=== PATIENT | female | born 1935 | race Caucasian/White ===

== ENCOUNTER 2023-04-02 21:02 | Inpatient (IN) | payer MEDICARE ==
[2023-04-02] MEDS ORDERED: Pantoprazole 80 MG, Admixture Fee 1 EACH in Sodium Chloride 0.9% 100 ML IVPB SCH (22:00)
[2023-04-02 22:07] LABS: %Basophils 0.3 % (0.0-1.0); %Eosinophils 0.4 % (0.0-10.0); %Lymphocytes 8.9 % (21.0-51.0); %Monocytes 9.5 % (0.0-10.0); %Neutrophils 80.1 % (42.0-75.0); Hematocrit 41.8 % (36.0-47.0); Hemoglobin 13.5 g/dL (12.0-16.0); Mean Corpuscular HGB CONC 32.3 g/dL (32.0-36.0); Mean Corpuscular Hemoglobin 29.3 pg (27.0-31.0); Mean Corpuscular Volume 90.9 fl (78.0-98.0); Mean Platelet Volume 8.7 fL (7.4-10.4); Platelet Count 291 10x3/uL (130-400); RBC Distribution Width 14.6 % (11.5-14.5)
[2023-04-02 22:15] LABS: INR-International Normal Ratio 1.2; PTT 28.1 sec (22.9-36.1); Prothrombin Time 15.3 sec (12.0-14.7)
[2023-04-02 22:45] LABS: Albumin 3.7 g/dL (3.4-4.8)
[2023-04-02 22:46] LABS: Chloride 91 mmol/L (98-107)
[2023-04-02 22:47] LABS: Calcium 9.3 mg/dL (7.8-10.44); Potassium 3.1 mmol/L (3.5-5.1); Sodium 137 mmol/L (136-145)
[2023-04-02 22:48] LABS: Globulin 2.1 g/dL (2.4-3.5); Glucose 120 mg/dL (83-110); Protein, Total 5.8 g/dL (5.8-8.1)
[2023-04-02 22:49] LABS: Anion Gap 13 mmol/L (10-20); Carbon Dioxide 36 mmol/L (23-31)
[2023-04-02 22:50] LABS: Bilirubin, Total 0.5 mg/dL (0.2-1.2)
[2023-04-02 22:51] LABS: Alkaline Phosphatase 131 U/L (40-110); Calc. Creatinine Clearance 0 mL/min (70-130); Estimated GFR 87
[2023-04-02 22:52] LABS: BUN (Urea Nitrogen) 15 mg/dL (9.8-20.1)
[2023-04-02 22:53] LABS: AST (SGOT) 13 U/L (5-34)
[2023-04-02 22:54] LABS: ALT (SGPT) 13 U/L (8-55)
[2023-04-02] MEDS ORDERED: Acetaminophen 325 MG TAB PO PRN (23:53)
[2023-04-02] MEDS ORDERED: Ondansetron PF 4 MG/2 ML Vial IVP PRN (23:53)
[2023-04-02] MEDS ORDERED: Ondansetron ODT 4 MG TAB PO PRN (23:53)
[2023-04-02] MEDS ORDERED: Acetaminophen 650 MG Suppository PR PRN (23:53)
[2023-04-03] MEDS ORDERED: Pantoprazole 80 MG in Sodium Chloride 0.9% 100 ML IVPB SCH (02:30)
[2023-04-03 05:21] LABS: #Eosinphils 0.1 thou/uL (0.0-0.7); #Neutrophils 7.2 thou/uL (1.40-6.50); %Basophils 0.3 % (0.0-1.0); %Lymphocytes 10.5 % (21.0-51.0); %Monocytes 10.9 % (0.0-10.0); %Neutrophils 76.6 % (42.0-75.0); Hematocrit 42.3 % (36.0-47.0); Hemoglobin 13.1 g/dL (12.0-16.0); Mean Corpuscular Hemoglobin 29.3 pg (27.0-31.0); Mean Platelet Volume 8.7 fL (7.4-10.4); Platelet Count 258 10x3/uL (130-400); RBC Distribution Width 14.6 % (11.5-14.5); Red Blood Cell (RBC) Count 4.47 mill/uL (4.20-5.40); White Blood Cell (WBC) Count 9.4 10x3/uL (4.8-10.8)
[2023-04-03 05:26] LABS: Mean Corpuscular Volume 94.6 fl (78.0-98.0)
[2023-04-03 05:57] LABS: Anion Gap 12 mmol/L (10-20); BUN (Urea Nitrogen) 15 mg/dL (9.8-20.1); Calc. Creatinine Clearance 0 mL/min (70-130); Calcium 8.7 mg/dL (7.8-10.44); Carbon Dioxide 34 mmol/L (23-31); Chloride 95 mmol/L (98-107); Estimated GFR 90; Glucose 99 mg/dL (83-110); Potassium 3.2 mmol/L (3.5-5.1); Sodium 138 mmol/L (136-145)
[2023-04-03] MEDS ORDERED: Pantoprazole 40 MG VIAL IVP SCH (09:49)
[2023-04-03] MEDS ORDERED: Magnesium 2 GM/50 ML(in water) 2 GM in Premix 1 BAG IVPB SCH (10:00)
[2023-04-03] MEDS ORDERED: Potassium Chloride 20 MEQ TAB PO SCH (10:00)
[2023-04-03] MEDS: Potassium Chloride 20 MEQ in Premix 1 BAG IVPB SCH ×2 (10:30→16:26)
[2023-04-03] MEDS: Pantoprazole 40 MG VIAL IVP SCH (20:49)
[2023-04-04 07:36] LABS: #Basophils 0.1 thou/uL (0.0-0.2); #Eosinphils 0.2 thou/uL (0.0-0.7); #Neutrophils 7.6 thou/uL (1.40-6.50); %Basophils 0.6 % (0.0-1.0); %Eosinophils 1.5 % (0.0-10.0); %Lymphocytes 8.9 % (21.0-51.0); %Neutrophils 78.3 % (42.0-75.0); Hematocrit 36.7 % (36.0-47.0); Hemoglobin 11.6 g/dL (12.0-16.0); Mean Corpuscular HGB CONC 31.6 g/dL (32.0-36.0); Mean Corpuscular Hemoglobin 29.4 pg (27.0-31.0); Mean Corpuscular Volume 92.9 fl (78.0-98.0); Platelet Count 275 10x3/uL (130-400); RBC Distribution Width 14.7 % (11.5-14.5); Red Blood Cell (RBC) Count 3.95 mill/uL (4.20-5.40); White Blood Cell (WBC) Count 9.8 10x3/uL (4.8-10.8)
[2023-04-04 07:49] LABS: Anion Gap 14 mmol/L (10-20); BUN (Urea Nitrogen) 16 mg/dL (9.8-20.1); Calc. Creatinine Clearance 88 mL/min (70-130); Calcium 8.9 mg/dL (7.8-10.44); Carbon Dioxide 28 mmol/L (23-31); Chloride 99 mmol/L (98-107); Estimated GFR 90; Glucose 94 mg/dL (83-110); Potassium 3.5 mmol/L (3.5-5.1); Sodium 137 mmol/L (136-145)
[2023-04-04] MEDS: Pantoprazole 40 MG VIAL IVP SCH ×2 (08:11→20:31)
[2023-04-04] MEDS ORDERED: traMADol HCl 50 MG TAB PO PRN (09:55)
[2023-04-04] MEDS ORDERED: Escitalopram Oxalate 10 mg Tablet PO SCH (09:55)
[2023-04-04] MEDS ORDERED: Potassium Chloride 20 MEQ TAB PO SCH (10:00)
[2023-04-04] MEDS: Magnesium Oxide 400 MG TAB PO SCH (11:00)
[2023-04-04] MEDS: Carvedilol 3.125 MG TAB PO SCH ×2 (11:00→20:31)
[2023-04-05 04:41] LABS: #Eosinphils 0.2 thou/uL (0.0-0.7); #Neutrophils 6.2 thou/uL (1.40-6.50); %Basophils 0.5 % (0.0-1.0); %Eosinophils 2.2 % (0.0-10.0); %Lymphocytes 10.2 % (21.0-51.0); %Neutrophils 74.1 % (42.0-75.0); Hematocrit 36.4 % (36.0-47.0); Hemoglobin 11.5 g/dL (12.0-16.0); Mean Corpuscular HGB CONC 31.6 g/dL (32.0-36.0); Mean Corpuscular Hemoglobin 29.6 pg (27.0-31.0); Mean Corpuscular Volume 93.6 fl (78.0-98.0); Mean Platelet Volume 9.2 fL (7.4-10.4); Platelet Count 291 10x3/uL (130-400); Red Blood Cell (RBC) Count 3.89 mill/uL (4.20-5.40); White Blood Cell (WBC) Count 8.4 10x3/uL (4.8-10.8)
[2023-04-05 05:08] LABS: Anion Gap 11 mmol/L (10-20); BUN (Urea Nitrogen) 15 mg/dL (9.8-20.1); Calc. Creatinine Clearance 86 mL/min (70-130); Calcium 9.1 mg/dL (7.8-10.44); Carbon Dioxide 33 mmol/L (23-31); Chloride 100 mmol/L (98-107); Estimated GFR 89; Glucose 86 mg/dL (83-110); Sodium 140 mmol/L (136-145)
[2023-04-05] MEDS: Pantoprazole 40 MG VIAL IVP SCH ×2 (07:59→20:27)
[2023-04-05] MEDS: Carvedilol 3.125 MG TAB PO SCH (07:59)
[2023-04-05] MEDS: Magnesium Oxide 400 MG TAB PO SCH (07:59)
[2023-04-05] MEDS: Escitalopram Oxalate 10 mg Tablet PO SCH (07:59)
[2023-04-05] MEDS ORDERED: Carvedilol 3.125 MG TAB PO SCH ×2 (10:15→21:00)
[2023-04-05] MEDS: Carvedilol 6.25 MG TAB PO SCH (20:27)
[2023-04-06 05:40] LABS: #Basophils 0.1 thou/uL (0.0-0.2); #Eosinphils 0.1 thou/uL (0.0-0.7); #Monocytes 0.9 thou/uL (0.11-0.59); #Neutrophils 5.7 thou/uL (1.40-6.50); %Basophils 0.7 % (0.0-1.0); %Eosinophils 1.7 % (0.0-10.0); %Lymphocytes 10.8 % (21.0-51.0); %Monocytes 11.5 % (0.0-10.0); %Neutrophils 74.4 % (42.0-75.0); Hematocrit 38.2 % (36.0-47.0); Hemoglobin 11.8 g/dL (12.0-16.0); Mean Corpuscular HGB CONC 30.9 g/dL (32.0-36.0); Mean Corpuscular Hemoglobin 29.2 pg (27.0-31.0); Mean Corpuscular Volume 94.6 fl (78.0-98.0); Mean Platelet Volume 8.9 fL (7.4-10.4); Platelet Count 272 10x3/uL (130-400); RBC Distribution Width 14.7 % (11.5-14.5); Red Blood Cell (RBC) Count 4.04 mill/uL (4.20-5.40); White Blood Cell (WBC) Count 7.7 10x3/uL (4.8-10.8)
[2023-04-06 06:08] LABS: Anion Gap 13 mmol/L (10-20); BUN (Urea Nitrogen) 12 mg/dL (9.8-20.1); Calc. Creatinine Clearance 95 mL/min (70-130); Calcium 9.1 mg/dL (7.8-10.44); Carbon Dioxide 32 mmol/L (23-31); Chloride 99 mmol/L (98-107); Estimated GFR 91; Glucose 81 mg/dL (83-110); Potassium 3.6 mmol/L (3.5-5.1); Sodium 140 mmol/L (136-145)
[2023-04-06] MEDS ORDERED: FLU VACC QS2023(65UP)/MF59C/PF 60 MCG/0.5 ML SYRINGE IM ONE (09:00)
[2023-04-06] MEDS: Carvedilol 6.25 MG TAB PO SCH ×2 (09:05→22:18)
[2023-04-06] MEDS: Escitalopram Oxalate 10 mg Tablet PO SCH (10:05)
[2023-04-06] MEDS: Magnesium Oxide 400 MG TAB PO SCH (10:06)
[2023-04-06] MEDS: Pantoprazole 40 MG VIAL IVP SCH ×2 (10:07→22:19)
[2023-04-06 13:03] VITALS: TEMP 98
[2023-04-06 21:19] VITALS: BP 142/79
== END 2023-04-06 23:52 | DRG 379 ==
LOC: ERS 21:02 → T4-B 04-03 00:26
PROVIDERS: ADMIT Student in an Organized Health Care Education/Training Program; ATTEND Internal Medicine
DX: K62.5 Hemorrhage of anus and rectum (principal); J44.9 Chronic obstructive pulmonary disease, unspecified; M41.9 Scoliosis, unspecified; G30.9 Alzheimer's disease, unspecified; I50.9 Heart failure, unspecified; E87.6 Hypokalemia; I11.0 Hypertensive heart disease with heart failure; F02.80 Dementia in other diseases classified elsewhere, unspecified severity, without behavioral disturbance, psychotic disturbance, mood disturbance, and anxiety; Z88.8 Allergy status to other drugs, medicaments and biological substances; Z79.899 Other long term (current) drug therapy; Z79.82 Long term (current) use of aspirin; Z90.49 Acquired absence of other specified parts of digestive tract; Z90.710 Acquired absence of both cervix and uterus; Z98.890 Other specified postprocedural states
CPT/HCPCS: 36415; 71045; 80048; 80053; 82274; 83880; 85025; 85610; 85730; 86850; 86900; 86901; 93005; 96365; 96366; C9113; J3475; J3480; J3490

== ENCOUNTER 2023-04-21 13:35 | Inpatient (IN) | payer MEDICARE ==
[2023-04-21 15:18] LABS: #Basophils 0.1 thou/uL (0.0-0.2); #Eosinphils 0.1 thou/uL (0.0-0.7); #Monocytes 0.8 thou/uL (0.11-0.59); #Neutrophils 7.8 thou/uL (1.40-6.50); %Basophils 0.6 % (0.0-1.0); %Eosinophils 0.8 % (0.0-10.0); %Lymphocytes 10.7 % (21.0-51.0); %Monocytes 7.5 % (0.0-10.0); %Neutrophils 78.6 % (42.0-75.0); Hematocrit 41.8 % (36.0-47.0); Hemoglobin 12.8 g/dL (12.0-16.0); Mean Corpuscular HGB CONC 30.6 g/dL (32.0-36.0); Mean Corpuscular Hemoglobin 29.1 pg (27.0-31.0); Mean Platelet Volume 9.2 fL (7.4-10.4); Platelet Count 226 10x3/uL (130-400); RBC Distribution Width 15.1 % (11.5-14.5)
[2023-04-21 15:42] LABS: ALT (SGPT) 23 U/L (8-55); AST (SGOT) 27 U/L (5-34); Albumin 3.3 g/dL (3.4-4.8); Alkaline Phosphatase 90 U/L (40-110); Anion Gap 12 mmol/L (10-20); BUN (Urea Nitrogen) 11 mg/dL (9.8-20.1); Bilirubin, Total 0.4 mg/dL (0.2-1.2); Calc. Creatinine Clearance 0 mL/min (70-130); Calcium 8.7 mg/dL (7.8-10.44); Carbon Dioxide 31 mmol/L (23-31); Chloride 105 mmol/L (98-107); Estimated GFR 87; Globulin 2.5 g/dL (2.4-3.5); Glucose 105 mg/dL (83-110); Potassium 4.3 mmol/L (3.5-5.1); Protein, Total 5.8 g/dL (5.8-8.1); Sodium 144 mmol/L (136-145)
[2023-04-21 15:44] LABS: Troponin I 0.057 ng/mL (< 0.028)
[2023-04-21 20:11] LABS: Bacteria/HPF None Seen HPF (None Seen); Bilirubin Negative (Negative); Blood, Urine Trace (Negative); CAUTI Indications for Culture Alt mental st,lethar; Clarity Clear (Clear); Glucose, Urine (Dipstick) Normal (Negative); Ketone, Urine 10 mg/dL (Negative); Leukocyte 25 Leu/uL (Negative); Nitrite Negative (Negative); Protein, Urine (Dipstick) 10 mg/dL (Neg-Trace); RBC/HPF 0-3 HPF (0-3); Specific Gravity, Urine 1.021 (1.002-1.036); Squamous Epithelial 0-3 HPF (0-3); Urobilinogen Normal mg/dL (Less than 2); WBC/HPF 0-3 HPF (0-3); Yeast-Budding 3+ HPF (None Seen); pH, Urine 5.5 (5.0-9.0)
[2023-04-21 20:13] LABS: Urine Culture Reflex No No
[2023-04-21] MEDS ORDERED: Acetaminophen 325 MG TAB PO PRN (20:59)
[2023-04-21] MEDS ORDERED: hydrALAZINE 20 MG/ML VIAL SLOW IVP PRN (21:31)
[2023-04-21 23:04] VITALS: BMI 27.2
[2023-04-22 04:53] LABS: #Basophils 0.1 thou/uL (0.0-0.2); #Eosinphils 0.1 thou/uL (0.0-0.7); #Monocytes 0.8 thou/uL (0.11-0.59); #Neutrophils 6.6 thou/uL (1.40-6.50); %Basophils 0.9 % (0.0-1.0); %Eosinophils 1.3 % (0.0-10.0); %Lymphocytes 12.8 % (21.0-51.0); %Monocytes 9.4 % (0.0-10.0); Hematocrit 39.7 % (36.0-47.0); Mean Corpuscular HGB CONC 30.2 g/dL (32.0-36.0); Mean Corpuscular Hemoglobin 28.2 pg (27.0-31.0); Mean Corpuscular Volume 93.4 fl (78.0-98.0); Mean Platelet Volume 9.8 fL (7.4-10.4); Platelet Count 213 10x3/uL (130-400); RBC Distribution Width 15.2 % (11.5-14.5); Red Blood Cell (RBC) Count 4.25 mill/uL (4.20-5.40); White Blood Cell (WBC) Count 8.9 10x3/uL (4.8-10.8)
[2023-04-22 05:20] LABS: ALT (SGPT) 25 U/L (8-55); AST (SGOT) 24 U/L (5-34); Albumin 3.1 g/dL (3.4-4.8); Alkaline Phosphatase 80 U/L (40-110); Anion Gap 12 mmol/L (10-20); BUN (Urea Nitrogen) 11 mg/dL (9.8-20.1); Bilirubin, Total 0.4 mg/dL (0.2-1.2); Calc. Creatinine Clearance 81 mL/min (70-130); Calcium 8.6 mg/dL (7.8-10.44); Carbon Dioxide 33 mmol/L (23-31); Chloride 104 mmol/L (98-107); Estimated GFR 88; Globulin 2.2 g/dL (2.4-3.5); Glucose 81 mg/dL (83-110); Potassium 3.6 mmol/L (3.5-5.1); Protein, Total 5.3 g/dL (5.8-8.1); Sodium 145 mmol/L (136-145)
[2023-04-22] MEDS ORDERED: Electrolyte Replacement Protocol 1 EACH FS SCH (05:45)
[2023-04-22 06:06] LABS: Magnesium 1.8 mg/dL (1.6-2.6)
[2023-04-22 06:10] LABS: Troponin I 0.046 ng/mL (< 0.028)
[2023-04-22] MEDS ORDERED: Magnesium 2 GM/50 ML(in water) 2 GM in Premix 1 BAG IVPB SCH (08:00)
[2023-04-22] MEDS ORDERED: Apixaban 2.5 MG TAB PO SCH (09:00)
[2023-04-22] MEDS ORDERED: FLU VACC QS2023(65UP)/MF59C/PF 60 MCG/0.5 ML SYRINGE IM ONE (09:00)
[2023-04-22] MEDS ORDERED: Furosemide 20 MG TAB PO SCH (09:00)
[2023-04-22] MEDS: Aspirin 81 mg Enteric Coated Tablet PO SCH ×2 (09:43→20:09)
[2023-04-22] MEDS: Escitalopram Oxalate 10 mg Tablet PO SCH (09:43)
[2023-04-22] MEDS: Carvedilol 3.125 MG TAB PO SCH ×2 (09:43→20:09)
[2023-04-22] MEDS: Furosemide 20 MG/2 ML VIAL SLOW IVP SCH (14:36)
[2023-04-23 04:50] LABS: Cardiac Risk 3.3 (Less than 4.5)
[2023-04-23] MEDS: Furosemide 20 MG/2 ML VIAL SLOW IVP SCH ×2 (05:27→15:01)
[2023-04-23] MEDS: Escitalopram Oxalate 10 mg Tablet PO SCH (10:50)
[2023-04-23] MEDS: Carvedilol 3.125 MG TAB PO SCH ×3 (10:50→20:38)
[2023-04-23] MEDS: Aspirin 81 mg Enteric Coated Tablet PO SCH ×3 (10:50→20:38)
[2023-04-24 05:04] LABS: #Eosinphils 0.1 thou/uL (0.0-0.7); #Monocytes 0.6 thou/uL (0.11-0.59); #Neutrophils 5.4 thou/uL (1.40-6.50); %Basophils 0.5 % (0.0-1.0); %Eosinophils 1.5 % (0.0-10.0); %Lymphocytes 14.4 % (21.0-51.0); %Monocytes 8.3 % (0.0-10.0); %Neutrophils 73.9 % (42.0-75.0); Hemoglobin 11.8 g/dL (12.0-16.0); Mean Corpuscular HGB CONC 31.1 g/dL (32.0-36.0); Mean Corpuscular Volume 93.4 fl (78.0-98.0); Mean Platelet Volume 9.9 fL (7.4-10.4); Platelet Count 267 10x3/uL (130-400); RBC Distribution Width 15.1 % (11.5-14.5); Red Blood Cell (RBC) Count 4.07 mill/uL (4.20-5.40); White Blood Cell (WBC) Count 7.3 10x3/uL (4.8-10.8)
[2023-04-24 05:13] LABS: ALT (SGPT) 23 U/L (8-55); AST (SGOT) 21 U/L (5-34); Albumin 2.9 g/dL (3.4-4.8); Alkaline Phosphatase 80 U/L (40-110); Anion Gap 16 mmol/L (10-20); BUN (Urea Nitrogen) 13 mg/dL (9.8-20.1); Bilirubin, Total 0.5 mg/dL (0.2-1.2); Calc. Creatinine Clearance 73 mL/min (70-130); Calcium 8.6 mg/dL (7.8-10.44); Carbon Dioxide 34 mmol/L (23-31); Chloride 98 mmol/L (98-107); Estimated GFR 86; Globulin 2.6 g/dL (2.4-3.5); Glucose 68 mg/dL (83-110); Potassium 3.7 mmol/L (3.5-5.1); Protein, Total 5.5 g/dL (5.8-8.1); Sodium 144 mmol/L (136-145)
[2023-04-24] MEDS: Furosemide 20 MG/2 ML VIAL SLOW IVP SCH ×2 (05:53→14:25)
[2023-04-24] MEDS: Aspirin 81 mg Enteric Coated Tablet PO SCH (10:44)
[2023-04-24] MEDS: Carvedilol 3.125 MG TAB PO SCH (10:44)
[2023-04-24] MEDS: Escitalopram Oxalate 10 mg Tablet PO SCH (10:44)
[2023-04-24 16:01] VITALS: BP 143/76; TEMP 97.7
== END 2023-04-24 19:36 | DRG 69 ==
LOC: ERS 13:35 → 2SE 20:59
PROVIDERS: ADMIT Student in an Organized Health Care Education/Training Program; ATTEND Family Medicine
DX: G45.9 Transient cerebral ischemic attack, unspecified (principal); I50.33 Acute on chronic diastolic (congestive) heart failure; I47.20 Ventricular tachycardia, unspecified; I42.9 Cardiomyopathy, unspecified; I11.0 Hypertensive heart disease with heart failure; G30.9 Alzheimer's disease, unspecified; M54.50 Low back pain, unspecified; G89.29 Other chronic pain; Z51.5 Encounter for palliative care; F02.C0 Dementia in other diseases classified elsewhere, severe, without behavioral disturbance, psychotic disturbance, mood disturbance, and anxiety; Z98.891 History of uterine scar from previous surgery; Z90.710 Acquired absence of both cervix and uterus; Z90.49 Acquired absence of other specified parts of digestive tract; Z98.890 Other specified postprocedural states; J44.9 Chronic obstructive pulmonary disease, unspecified; Z88.8 Allergy status to other drugs, medicaments and biological substances; I08.1 Rheumatic disorders of both mitral and tricuspid valves
CPT/HCPCS: 36415; 51701; 70450; 71045; 80053; 80061; 81001; 83735; 83880; 84484; 85025; 93005; 93010; 93306; J1940; J3475

== ENCOUNTER 2023-06-26 06:08 | Inpatient (IN) | payer MEDICARE ==
[2023-06-26 07:24] LABS: #Monocytes 0.3 thou/uL (0.11-0.59); #Neutrophils 7.6 thou/uL (1.40-6.50); %Basophils 0.5 % (0.0-1.0); %Eosinophils 0.1 % (0.0-10.0); %Lymphocytes 10.5 % (21.0-51.0); %Monocytes 2.8 % (0.0-10.0); %Neutrophils 85.4 % (42.0-75.0); Hematocrit 41.6 % (36.0-47.0); Hemoglobin 12.1 g/dL (12.0-16.0); Mean Corpuscular HGB CONC 29.1 g/dL (32.0-36.0); Mean Corpuscular Hemoglobin 26.9 pg (27.0-31.0); Mean Corpuscular Volume 92.4 fl (78.0-98.0); Mean Platelet Volume 9.5 fL (7.4-10.4); Platelet Count 245 10x3/uL (130-400); RBC Distribution Width 17.5 % (11.5-14.5); White Blood Cell (WBC) Count 8.9 10x3/uL (4.8-10.8)
[2023-06-26 07:44] LABS: ALT (SGPT) 18 U/L (8-55); AST (SGOT) 27 U/L (5-34); Alkaline Phosphatase 74 U/L (40-110); BUN (Urea Nitrogen) 19 mg/dL (9.8-20.1); Bilirubin, Total 0.5 mg/dL (0.2-1.2); Calc. Creatinine Clearance 0 mL/min (70-130); Calcium 9.4 mg/dL (7.8-10.44); Estimated GFR 85; Globulin 3.2 g/dL (2.4-3.5); Glucose 123 mg/dL (83-110); Magnesium 2.4 mg/dL (1.6-2.6); Protein, Total 6.2 g/dL (5.8-8.1)
[2023-06-26 07:46] LABS: Troponin I 0.108 ng/mL (< 0.028)
[2023-06-26 07:50] LABS: Actual Bicarbonate (HCO3v) 38.4 mEq/L (22-28); Base Excess 8.3 mEq/L (-2.0 to +3.0); Calcium, Ionized (venous) 1.22 mmol/L (1.16-1.32); Chloride (VBG) 99 mmol/L (98-106); Hematocrit-VBG 39 % (36.0-47.0); Hemoglobin (Hb) 13.1 g/dL (11.7-16.1); Sodium 146 mmol/L (133-146)
[2023-06-26 07:57] LABS: Carbon Dioxide 37 mmol/L (23-31); Chloride 99 mmol/L (98-107); Potassium 4.4 mmol/L (3.5-5.1); Sodium 146 mmol/L (136-145)
[2023-06-26 07:59] LABS: Anion Gap 14 mmol/L (10-20)
[2023-06-26] MEDS ORDERED: Furosemide 40 MG (4 mL) VIAL ONE (08:23)
[2023-06-26] MEDS ORDERED: Aspirin 300 MG Suppository ONE (08:24)
[2023-06-26] MEDS ORDERED: Cefepime 2 GM VIAL ONE (08:24)
[2023-06-26] MEDS ORDERED: Sodium Chloride 0.9% 100 ML ONE (08:24)
[2023-06-26] MEDS ORDERED: Vancomycin 1 GM/200 ML (FROZEN) BAG ONE (08:24)
[2023-06-26] MEDS ORDERED: Ipratropium/Albuterol 3 ML NEB NEB PRN (09:14)
[2023-06-26 10:19] LABS: Troponin I 0.115 ng/mL (< 0.028)
[2023-06-26 11:17] LABS: Bacteria/HPF 1+ HPF (None Seen); Bilirubin Negative (Negative); Blood, Urine 2+ (Negative); CAUTI Indications for Culture Alt mental st,lethar; Clarity Turbid (Clear); Glucose, Urine (Dipstick) Normal (Negative); Ketone, Urine Negative (Negative); Leukocyte Negative Leu/uL (Negative); Nitrite 2+ (Negative); Protein, Urine (Dipstick) Negative (Neg-Trace); Specific Gravity, Urine 1.014 (1.002-1.036); Squamous Epithelial 0-3 HPF (0-3); Urobilinogen Normal mg/dL (Less than 2); WBC/HPF 0-3 HPF (0-3); pH, Urine 5.5 (5.0-9.0)
[2023-06-26 11:19] LABS: Urine Culture Reflex No No
[2023-06-26 11:30] LABS: Actual Bicarbonate (HCO3a) 42.9 mEq/L (22-28); Analyzer IN Cardio ER; Base Excess (BEa) 13.2 mEq/L (-2.0 to +3.0); Calcium, Ionized (arterial) 1.22 mmol/L (1.12-1.30); Carboxyhemoglobin (COHb) 1.3 gm% (0.0-3.0); Hematocrit-ABG 38 % (36.0-47.0); Hemoglobin (Hb) 12.9 g/dL (12.0-16.0); O2 Tension (PaO2), arterial 124.8 mmHg (> 60.0); Potassium - ABG Lab 3.79 mmol/L (3.70-5.30); pH, Arterial 7.325 (7.35-7.45)
[2023-06-26 11:33] LABS: CO2 Tension 84.2 mmHg (35.0-45.0); Puncture Site LRA
[2023-06-26 12:28] LABS: Sodium 142 mmol/L (136-145)
[2023-06-26] MEDS ORDERED: Ipratropium/Albuterol 3 ML NEB NEB SCH (13:00)
[2023-06-26 15:15] LABS: Sodium 145 mmol/L (136-145)
[2023-06-26] MEDS ORDERED: Furosemide 40 MG (4 mL) VIAL SLOW IVP SCH (15:30)
[2023-06-26] MEDS: methylPREDNISolone Sod Succ 40 MG VIAL IVP SCH ×3 (16:28→23:05)
[2023-06-26] MEDS: Azithromycin 500 MG in Sodium Chloride 0.9% 250 ML 250 ML IVPB SCH (16:28)
[2023-06-26] MEDS: Ipratropium/Albuterol 3 ML NEB NEB SCH ×2 (18:17→21:29)
[2023-06-26] MEDS: Famotidine/PF 20 mg/2ml Vial SLOW IVP SCH (20:29)
[2023-06-26] MEDS: Famotidine 20 MG TAB PO SCH (20:29)
[2023-06-26] MEDS: cefTRIAXone\\ROCEPHIN 2 GM in Sodium Chloride 0.9% 100 ML IVPB SCH (20:29)
[2023-06-27] MEDS: Ipratropium/Albuterol 3 ML NEB NEB SCH ×6 (02:02→22:22)
[2023-06-27] MEDS: Furosemide 40 MG (4 mL) VIAL SLOW IVP SCH ×2 (05:25→15:16)
[2023-06-27] MEDS: methylPREDNISolone Sod Succ 40 MG VIAL IVP SCH ×4 (05:26→23:51)
[2023-06-27 06:53] LABS: #Monocytes 0.2 thou/uL (0.11-0.59); #Neutrophils 6.7 thou/uL (1.40-6.50); %Basophils 0.1 % (0.0-1.0); %Monocytes 2.9 % (0.0-10.0); %Neutrophils 86.1 % (42.0-75.0); Hemoglobin 11.7 g/dL (12.0-16.0); Mean Corpuscular HGB CONC 29.3 g/dL (32.0-36.0); Mean Corpuscular Hemoglobin 26.5 pg (27.0-31.0); Mean Corpuscular Volume 90.5 fl (78.0-98.0); Mean Platelet Volume 10.1 fL (7.4-10.4); Platelet Count 274 10x3/uL (130-400); RBC Distribution Width 17.8 % (11.5-14.5); Red Blood Cell (RBC) Count 4.42 mill/uL (4.20-5.40); White Blood Cell (WBC) Count 7.8 10x3/uL (4.8-10.8)
[2023-06-27 07:12] LABS: BUN (Urea Nitrogen) 17 mg/dL (9.8-20.1); Calc. Creatinine Clearance 61 mL/min (70-130); Calcium 8.8 mg/dL (7.8-10.44); Estimated GFR 84; Glucose 136 mg/dL (83-110)
[2023-06-27 07:21] LABS: Anion Gap 17 mmol/L (10-20); Carbon Dioxide 38 mmol/L (23-31); Chloride 94 mmol/L (98-107); Potassium 3.1 mmol/L (3.5-5.1); Sodium 146 mmol/L (136-145)
[2023-06-27] MEDS: Famotidine/PF 20 mg/2ml Vial SLOW IVP SCH ×2 (10:15→21:06)
[2023-06-27] MEDS: Enoxaparin 40 MG (0.4 mL) SYRINGE SC SCH (10:15)
[2023-06-27] MEDS: Famotidine 20 MG TAB PO SCH ×2 (10:15→21:07)
[2023-06-27] MEDS: Azithromycin 500 MG in Sodium Chloride 0.9% 250 ML 250 ML IVPB SCH (15:16)
[2023-06-27] MEDS: cefTRIAXone\\ROCEPHIN 2 GM in Sodium Chloride 0.9% 100 ML IVPB SCH (21:06)
[2023-06-28] MEDS ORDERED: Acetaminophen 650 MG Suppository PR PRN (00:30)
[2023-06-28] MEDS ORDERED: Acetaminophen 325 MG TAB PO PRN (00:34)
[2023-06-28] MEDS: Ipratropium/Albuterol 3 ML NEB NEB SCH ×6 (02:44→21:40)
[2023-06-28] MEDS ORDERED: Carvedilol 3.125 MG TAB PO SCH (03:45)
[2023-06-28] MEDS: Furosemide 40 MG (4 mL) VIAL SLOW IVP SCH (05:40)
[2023-06-28] MEDS: methylPREDNISolone Sod Succ 40 MG VIAL IVP SCH (05:40)
[2023-06-28 05:44] LABS: #Monocytes 0.4 thou/uL (0.11-0.59); #Neutrophils 8.1 thou/uL (1.40-6.50); %Basophils 0.1 % (0.0-1.0); %Lymphocytes 6.5 % (21.0-51.0); %Neutrophils 88.2 % (42.0-75.0); Hematocrit 37.8 % (36.0-47.0); Hemoglobin 11.3 g/dL (12.0-16.0); Mean Corpuscular HGB CONC 29.9 g/dL (32.0-36.0); Mean Corpuscular Hemoglobin 26.2 pg (27.0-31.0); Mean Platelet Volume 9.9 fL (7.4-10.4); Platelet Count 257 10x3/uL (130-400); RBC Distribution Width 18.2 % (11.5-14.5); Red Blood Cell (RBC) Count 4.31 mill/uL (4.20-5.40); White Blood Cell (WBC) Count 9.2 10x3/uL (4.8-10.8)
[2023-06-28 05:46] LABS: Mean Corpuscular Volume 87.7 fl (78.0-98.0)
[2023-06-28 06:05] LABS: BUN (Urea Nitrogen) 24 mg/dL (9.8-20.1); Calc. Creatinine Clearance 60 mL/min (70-130); Calcium 8.3 mg/dL (7.8-10.44); Estimated GFR 81; Glucose 172 mg/dL (83-110); Magnesium 1.7 mg/dL (1.6-2.6)
[2023-06-28 06:15] LABS: Anion Gap 16 mmol/L (10-20); Carbon Dioxide 41 mmol/L (23-31); Chloride 93 mmol/L (98-107); Potassium 2.9 mmol/L (3.5-5.1); Sodium 147 mmol/L (136-145)
[2023-06-28 09:39] VITALS: BMI 25.8
[2023-06-28] MEDS: Famotidine/PF 20 mg/2ml Vial SLOW IVP SCH ×2 (09:47→20:56)
[2023-06-28] MEDS: Potassium Bicarbonate/Cit Ac 20 MEQ TAB PO SCH ×2 (09:47→12:32)
[2023-06-28] MEDS: Enoxaparin 40 MG (0.4 mL) SYRINGE SC SCH (09:47)
[2023-06-28] MEDS: Carvedilol 3.125 MG TAB PO SCH ×2 (09:47→20:55)
[2023-06-28] MEDS: Famotidine 20 MG TAB PO SCH ×2 (09:49→20:57)
[2023-06-28] MEDS: Azithromycin 500 MG in Sodium Chloride 0.9% 250 ML 250 ML IVPB SCH (15:49)
[2023-06-28] MEDS: cefTRIAXone\\ROCEPHIN 2 GM in Sodium Chloride 0.9% 100 ML IVPB SCH (20:56)
[2023-06-29] MEDS: Ipratropium/Albuterol 3 ML NEB NEB SCH ×5 (01:47→23:20)
[2023-06-29 04:42] LABS: #Monocytes 1.1 thou/uL (0.11-0.59); #Neutrophils 7.7 thou/uL (1.40-6.50); %Basophils 0.1 % (0.0-1.0); %Lymphocytes 12.4 % (21.0-51.0); %Monocytes 10.6 % (0.0-10.0); %Neutrophils 76.2 % (42.0-75.0); Hematocrit 37.5 % (36.0-47.0); Hemoglobin 11.3 g/dL (12.0-16.0); Mean Corpuscular HGB CONC 30.1 g/dL (32.0-36.0); Mean Corpuscular Hemoglobin 26.8 pg (27.0-31.0); Mean Corpuscular Volume 88.9 fl (78.0-98.0); Platelet Count 235 10x3/uL (130-400); RBC Distribution Width 18.3 % (11.5-14.5); Red Blood Cell (RBC) Count 4.22 mill/uL (4.20-5.40); White Blood Cell (WBC) Count 10.1 10x3/uL (4.8-10.8)
[2023-06-29 05:10] LABS: BUN (Urea Nitrogen) 18 mg/dL (9.8-20.1); Calc. Creatinine Clearance 71 mL/min (70-130); Calcium 8.4 mg/dL (7.8-10.44); Estimated GFR 86; Glucose 87 mg/dL (83-110)
[2023-06-29 05:12] LABS: Critical Call Chemistry NUR.SEG1@0512; Potassium 2.6 mmol/L (3.5-5.1)
[2023-06-29 05:19] LABS: Anion Gap 15 mmol/L (10-20); Carbon Dioxide 43 mmol/L (23-31); Chloride 95 mmol/L (98-107); Sodium 150 mmol/L (136-145)
[2023-06-29] MEDS ORDERED: Potassium Bicarbonate/Cit Ac 20 MEQ TAB PO SCH (05:45)
[2023-06-29] MEDS: Potassium Chloride 20 MEQ in Premix 1 BAG IVPB SCH ×2 (05:47→09:57)
[2023-06-29 05:59] LABS: Magnesium 1.6 mg/dL (1.6-2.6)
[2023-06-29] MEDS: Famotidine 20 MG TAB PO SCH ×2 (09:57→19:57)
[2023-06-29] MEDS: Carvedilol 3.125 MG TAB PO SCH ×2 (09:57→19:57)
[2023-06-29] MEDS: Enoxaparin 40 MG (0.4 mL) SYRINGE SC SCH (09:58)
[2023-06-29] MEDS: predniSONE 20 MG TAB PO SCH (09:58)
[2023-06-29] MEDS: Famotidine/PF 20 mg/2ml Vial SLOW IVP SCH ×2 (11:17→19:56)
[2023-06-29] MEDS: Dextrose 5% in Water 1,000 ML IV SCH ×2 (12:02→20:08)
[2023-06-29] MEDS: Potassium Bicarbonate/Cit Ac 20 MEQ TAB PO SCH ×3 (12:02→18:11)
[2023-06-29] MEDS ORDERED: FLU VACC QS2023(65UP)/MF59C/PF 60 MCG/0.5 ML SYRINGE IM ONE (15:15)
[2023-06-29] MEDS: cefTRIAXone\\ROCEPHIN 2 GM in Sodium Chloride 0.9% 100 ML IVPB SCH (19:56)
[2023-06-30 05:09] LABS: #Eosinphils 0.2 thou/uL (0.0-0.7); #Monocytes 0.7 thou/uL (0.11-0.59); %Basophils 0.2 % (0.0-1.0); %Eosinophils 2.2 % (0.0-10.0); %Monocytes 6.9 % (0.0-10.0); %Neutrophils 72.3 % (42.0-75.0); Hemoglobin 12.2 g/dL (12.0-16.0); Mean Corpuscular HGB CONC 29.8 g/dL (32.0-36.0); Mean Corpuscular Hemoglobin 26.6 pg (27.0-31.0); Mean Corpuscular Volume 89.5 fl (78.0-98.0); Platelet Count 201 10x3/uL (130-400); RBC Distribution Width 18.3 % (11.5-14.5); Red Blood Cell (RBC) Count 4.58 mill/uL (4.20-5.40); White Blood Cell (WBC) Count 9.6 10x3/uL (4.8-10.8)
[2023-06-30 05:59] LABS: BUN (Urea Nitrogen) 13 mg/dL (9.8-20.1); Calc. Creatinine Clearance 80 mL/min (70-130); Calcium 8.2 mg/dL (7.8-10.44); Estimated GFR 89; Glucose 112 mg/dL (83-110)
[2023-06-30 06:15] LABS: Anion Gap 16 mmol/L (10-20); Carbon Dioxide 34 mmol/L (23-31); Chloride 92 mmol/L (98-107); Potassium 3.2 mmol/L (3.5-5.1); Sodium 139 mmol/L (136-145)
[2023-06-30] MEDS: Ipratropium/Albuterol 3 ML NEB NEB SCH ×2 (06:40→13:46)
[2023-06-30] MEDS ORDERED: Potassium Bicarbonate/Cit Ac 20 MEQ TAB PO SCH (07:00)
[2023-06-30] MEDS: Enoxaparin 40 MG (0.4 mL) SYRINGE SC SCH (08:43)
[2023-06-30] MEDS: Famotidine 20 MG TAB PO SCH (08:44)
[2023-06-30] MEDS: Carvedilol 3.125 MG TAB PO SCH (08:44)
[2023-06-30] MEDS: predniSONE 20 MG TAB PO SCH (08:44)
[2023-06-30] MEDS: Dextrose 5% in Water 1,000 ML IV SCH (08:49)
[2023-06-30] MEDS: Famotidine/PF 20 mg/2ml Vial SLOW IVP SCH (08:52)
[2023-06-30 13:44] VITALS: BP 144/74; TEMP 97.8
[2023-06-30] MEDS ORDERED: Cefdinir 300 MG CAP PO SCH (21:00)
== END 2023-06-30 17:29 | disposition home or self-care (01) | DRG 291 ==
LOC: ERS 06:08 → IMCU/EMU 14:32 → SURG A 06-27 18:15
PROVIDERS: ADMIT Hospitalist; ATTEND Hospitalist
PROC: 4A033R1 Measurement of Arterial Saturation, Peripheral, Percutaneous Approach (ICD-10-PCS; principal; 2023-06-26)
DX: I50.31 Acute diastolic (congestive) heart failure (principal); G93.41 Metabolic encephalopathy; J96.21 Acute and chronic respiratory failure with hypoxia; J96.22 Acute and chronic respiratory failure with hypercapnia; I42.9 Cardiomyopathy, unspecified; J44.1 Chronic obstructive pulmonary disease with (acute) exacerbation; E87.0 Hyperosmolality and hypernatremia; I5A Non-ischemic myocardial injury (non-traumatic); E87.3 Alkalosis; G30.9 Alzheimer's disease, unspecified; E87.6 Hypokalemia; Z66 Do not resuscitate; F02.80 Dementia in other diseases classified elsewhere, unspecified severity, without behavioral disturbance, psychotic disturbance, mood disturbance, and anxiety; Z86.73 Personal history of transient ischemic attack (TIA), and cerebral infarction without residual deficits; Z79.899 Other long term (current) drug therapy; Z79.82 Long term (current) use of aspirin; Z90.49 Acquired absence of other specified parts of digestive tract; Z86.16 Personal history of COVID-19; Z90.710 Acquired absence of both cervix and uterus; Z98.890 Other specified postprocedural states
CPT/HCPCS: 36415; 36600; 71045; 80048; 80053; 81001; 82805; 83605; 83735; 83880; 84484; 85025; 87040; 87077; 87086; 87186; 93005; 93010; 94640; 94660; 96365; 96368; 96375; J0456; J0692; J0696; J1650; J1940; J2920; J3370-JW; J3480; J3490; J7050; J7070; J7512; J7620; S0028

== ENCOUNTER 2023-08-02 07:37 | Inpatient (IN) | payer MEDICARE ==
[2023-08-02 08:17] LABS: #Basophils 0.1 thou/uL (0.0-0.2); #Eosinphils 0.1 thou/uL (0.0-0.7); #Monocytes 0.6 thou/uL (0.11-0.59); #Neutrophils 8.8 thou/uL (1.40-6.50); %Basophils 0.6 % (0.0-1.0); %Eosinophils 0.7 % (0.0-10.0); %Lymphocytes 10.5 % (21.0-51.0); %Monocytes 5.7 % (0.0-10.0); %Neutrophils 81.8 % (42.0-75.0); Hematocrit 41.5 % (36.0-47.0); Hemoglobin 12.7 g/dL (12.0-16.0); Mean Corpuscular HGB CONC 30.6 g/dL (32.0-36.0); Mean Corpuscular Volume 88.3 fl (78.0-98.0); Mean Platelet Volume 9.1 fL (7.4-10.4); Platelet Count 316 10x3/uL (130-400); RBC Distribution Width 17.3 % (11.5-14.5); White Blood Cell (WBC) Count 10.8 10x3/uL (4.8-10.8)
[2023-08-02] MEDS ORDERED: Dexamethasone 10 MG/ML VIAL ONE (08:18)
[2023-08-02] MEDS ORDERED: Ipratropium/Albuterol 3 ML NEB ONE ×2 (08:19→10:02)
[2023-08-02 08:40] LABS: Troponin I 0.019 ng/mL (< 0.028)
[2023-08-02 08:44] LABS: ALT (SGPT) 11 U/L (8-55); AST (SGOT) 21 U/L (5-34); Albumin 3.1 g/dL (3.4-4.8); Alkaline Phosphatase 75 U/L (40-110); Anion Gap 14 mmol/L (10-20); BUN (Urea Nitrogen) 7 mg/dL (9.8-20.1); Bilirubin, Total 0.5 mg/dL (0.2-1.2); Calc. Creatinine Clearance 0 mL/min (70-130); Calcium 9.2 mg/dL (7.8-10.44); Carbon Dioxide 36 mmol/L (23-31); Chloride 94 mmol/L (98-107); Estimated GFR 88; Glucose 82 mg/dL (83-110); Potassium 4.2 mmol/L (3.5-5.1); Protein, Total 6.1 g/dL (5.8-8.1); Sodium 140 mmol/L (136-145)
[2023-08-02] MEDS ORDERED: Sodium Chloride 0.9% 100 ML ONE (09:50)
[2023-08-02] MEDS ORDERED: cefTRIAXone (ROCEPHIN) 1 GM VIAL ONE (09:50)
[2023-08-02] MEDS ORDERED: Azithromycin 500 MG VIAL ONE (10:45)
[2023-08-02] MEDS ORDERED: traMADol HCl 50 MG TAB PO PRN (13:41)
[2023-08-02] MEDS ORDERED: Albuterol 2.5 MG (3 mL) NEB NEB PRN (13:41)
[2023-08-02 14:14] LABS: Actual Bicarbonate (HCO3a) 35.9 mEq/L (22-28); Analyzer IN Cardio ER; Base Excess (BEa) 7.9 mEq/L (-2.0 to +3.0); Calcium, Ionized (arterial) 1.17 mmol/L (1.12-1.30); Carboxyhemoglobin (COHb) 1.3 gm% (0.0-3.0); Hematocrit-ABG 39 % (36.0-47.0); Hemoglobin (Hb) 13.4 g/dL (12.0-16.0); O2 Tension (PaO2), arterial 66.3 mmHg (> 60.0); pH, Arterial 7.348 (7.35-7.45)
[2023-08-02 14:16] LABS: CO2 Tension 66.8 mmHg (35.0-45.0); Puncture Site RRA
[2023-08-02 14:33] LABS: Influenza A by NAA Not Detected (NotDetected); Influenza B by NAA Not Detected (NotDetected); SARS-CoV-2 NAA Rapid Test Not Detected (NotDetected)
[2023-08-02] MEDS: acetaZOLAMIDE Sodium 500 MG in Sodium Chloride 0.9% 50 ML IVPB SCH (16:32)
[2023-08-02] MEDS: Carvedilol 6.25 MG TAB PO SCH (17:52)
[2023-08-02] MEDS: Ipratropium/Albuterol 3 ML NEB NEB SCH (18:38)
[2023-08-02] MEDS: Budesonide 0.5 MG/2 ML NEB INH SCH (18:38)
[2023-08-02] MEDS: Arformoterol 15 MCG/2 ML NEB NEB SCH (18:39)
[2023-08-02] MEDS: Acetaminophen 325 MG TAB PO PRN (21:12)
[2023-08-02] MEDS: Atorvastatin Calcium 10 MG TAB PO SCH (21:12)
[2023-08-03 04:39] LABS: #Monocytes 0.4 thou/uL (0.11-0.59); #Neutrophils 7.2 thou/uL (1.40-6.50); %Basophils 0.3 % (0.0-1.0); %Monocytes 4.7 % (0.0-10.0); %Neutrophils 80.5 % (42.0-75.0); Hematocrit 36.8 % (36.0-47.0); Hemoglobin 11.3 g/dL (12.0-16.0); Mean Corpuscular HGB CONC 30.7 g/dL (32.0-36.0); Mean Corpuscular Volume 87.8 fl (78.0-98.0); Mean Platelet Volume 9.2 fL (7.4-10.4); Platelet Count 299 10x3/uL (130-400); RBC Distribution Width 17.5 % (11.5-14.5); Red Blood Cell (RBC) Count 4.19 mill/uL (4.20-5.40); White Blood Cell (WBC) Count 8.9 10x3/uL (4.8-10.8)
[2023-08-03] MEDS ORDERED: Docusate 100 MG CAP PO PRN (07:57)
[2023-08-03] MEDS ORDERED: Iron Polysaccharides Complex 150 MG CAP PO SCH (09:00)
[2023-08-03 09:25] LABS: Anion Gap 20 mmol/L (10-20); BUN (Urea Nitrogen) 14 mg/dL (9.8-20.1); Calc. Creatinine Clearance 66 mL/min (70-130); Calcium 8.8 mg/dL (7.8-10.44); Carbon Dioxide 24 mmol/L (23-31); Chloride 97 mmol/L (98-107); Estimated GFR 85; Glucose 113 mg/dL (83-110); Potassium 4.3 mmol/L (3.5-5.1); Sodium 137 mmol/L (136-145)
[2023-08-03] MEDS: acetaZOLAMIDE Sodium 500 MG, Admixture Fee 1 EACH in Sodium Chloride 0.9% 50 ML IVPB SCH (09:34)
[2023-08-03] MEDS: predniSONE 20 MG TAB PO SCH (09:35)
[2023-08-03] MEDS: Escitalopram Oxalate 10 mg Tablet PO SCH (09:35)
[2023-08-03] MEDS: Aspirin 81 mg Enteric Coated Tablet PO SCH (09:35)
[2023-08-03] MEDS: Enoxaparin 40 MG (0.4 mL) SYRINGE SC SCH (09:35)
[2023-08-03] MEDS: Iron Polysaccharides Complex 150 MG CAP PO SCH (09:36)
[2023-08-03] MEDS: Calcium Carbonate + Vit D 250 MG TAB PO SCH (09:36)
[2023-08-03 11:15] VITALS: BMI 29.0
[2023-08-05] MEDS ORDERED: FLU VACC QS2023(65UP)/MF59C/PF 60 MCG/0.5 ML SYRINGE IM ONE (09:00)
[2023-08-05 16:32] VITALS: BP 157/72; TEMP 98
== END 2023-08-05 17:20 | DRG 291 ==
LOC: ERS 07:37 → ERHOLD 13:00 → INTOOBSV 13:00 → 2NO 15:24 → OBSVTOIN 08-04 08:50
PROVIDERS: ADMIT Family Medicine; ATTEND Internal Medicine
PROC: 4A033R1 Measurement of Arterial Saturation, Peripheral, Percutaneous Approach (ICD-10-PCS; principal; 2023-08-04)
DX: I11.0 Hypertensive heart disease with heart failure (principal); I50.33 Acute on chronic diastolic (congestive) heart failure; J96.21 Acute and chronic respiratory failure with hypoxia; J96.22 Acute and chronic respiratory failure with hypercapnia; Z66 Do not resuscitate; G93.40 Encephalopathy, unspecified; J44.1 Chronic obstructive pulmonary disease with (acute) exacerbation; E87.3 Alkalosis; G47.33 Obstructive sleep apnea (adult) (pediatric); I42.9 Cardiomyopathy, unspecified; F03.90 Unspecified dementia, unspecified severity, without behavioral disturbance, psychotic disturbance, mood disturbance, and anxiety; E78.5 Hyperlipidemia, unspecified; G89.29 Other chronic pain; J44.9 Chronic obstructive pulmonary disease, unspecified; I27.20 Pulmonary hypertension, unspecified; Z87.81 Personal history of (healed) traumatic fracture; Z90.49 Acquired absence of other specified parts of digestive tract; Z98.891 History of uterine scar from previous surgery; Z90.710 Acquired absence of both cervix and uterus; Z98.890 Other specified postprocedural states
CPT/HCPCS: 36415; 36600; 71045; 71275; 80048; 80053; 82805; 83605; 83880; 84484; 85025; 85379; 87040; 87633; 87798; 93005; 94760; 96365; 96367; J0456; J0696; J1100; J1120; J1650; J3490; J7512; J7620; J7626